=== PATIENT | female | born 1965 | race Caucasian/White ===

== ENCOUNTER 2016-09-02 08:48 | Emergency (ER) | payer OTHER ==
[2016-09-02 09:03] VITALS: BP 101/62
--- NOTE | 2016-09-02 10:49 | UC ---
Throat Pain/Nasal Kana HPI - HPI Summary HPI Summary: Patient has had a rough cough, and sore thraot, body aches and low grade fever for the past few days - History of Current Complaint Chief Complaint: UCRespiratory Stated Complaint: SORE THROAT CHILLS COUGH HEADACHE Time Seen by Provider: 09/02/16 10:17 Hx Obtained From: Patient Hx Last Menstrual Period: 08/15/16 Onset/Duration: Sudden Onset, Lasting Days Severity: Moderate Cough: Nonproductive Associated Signs & Symptoms: Positive: Dysphagia, Wheezing, Sinus Discomfort, Fever - Epiglottits Risk Factors Epiglottis Risk Factors: Negative - Allergies/Home Medications Allergies/Adverse Reactions: Allergies Allergy/AdvReac Type Severity Reaction Status Date / Time No Known Allergies Allergy Verified 09/02/16 09:02 PMH/Surg Hx/FS Hx/Imm Hx Previously Healthy: Yes Cancer History Of: Denies: Breast Cancer - Surgical History Surgical History: Yes Surgery Procedure, Year, and Place: tonsils - Family History Known Family History: Negative: Cardiac Disease, Hypertension - Social History Alcohol Use: Occasionally Substance Use Type: None Smoking Status (MU): Never Smoked Tobacco Review of Systems Constitutional: Fever, Fatigue Skin: Negative Eyes: Negative ENT: Sore Throat, Ear Ache, Nasal Discharge Respiratory: Cough Cardiovascular: Negative Gastrointestinal: Negative Genitourinary: Negative Motor: Negative Neurovascular: Negative Musculoskeletal: Arthralgia, Myalgia Neurological: Negative Psychological: Negative All Other Systems Reviewed And Are Negative: Yes Physical Exam Triage Information Reviewed: Yes Appearance: No Pain Distress, Well-Nourished, Ill-Appearing, Pain Distress Vital Signs: Initial Vital Signs Temp 99.0 F 09/02/16 08:58 Pulse 87 09/02/16 08:58 Resp 20 09/02/16 08:58 BP 101/62 09/02/16 08:58 Pulse Ox 95 09/02/16 08:58 Vital Signs Reviewed: Yes Eye Exam: Normal Eyes: Positive: Conjunctiva Clear ENT: Positive: Pharyngeal erythema, Nasal congestion, TM bulging Dental Exam: Normal Neck exam: Normal Neck: Positive: Supple, Nontender, No Lymphadenopathy Respiratory Exam: Normal Respiratory: Positive: Chest non-tender, Lungs clear, Normal breath sounds Cardiovascular Exam: Normal Cardiovascular: Positive: RRR, No Murmur, Pulses Normal Abdominal Exam: Normal Abdomen Description: Positive: Nontender, No Organomegaly, Soft Bowel Sounds: Positive: Present Musculoskeletal Exam: Normal Musculoskeletal: Positive: Strength Intact, ROM Intact, No Edema Neurological Exam: Normal Neurological: Positive: Alert, Muscle Tone Normal Psychological Exam: Normal Skin Exam: Normal Throat Pain/Nasal Course/Dx - Course Course Of Treatment: hx obtained, exam performed, rapid flu and strep obtained. - Differential Dx/Diagnosis Differential Diagnosis/HQI/PQRI: Influenza, Laryngitis, Otitis Media, Pharyngitis, Sinusitis, Tonsillitis, URI Provider Diagnoses: influenza B Discharge - Discharge Plan Condition: Stable Disposition: HOME Prescriptions: Albuterol HFA INHALER* [Ventolin HFA Inhaler*] 2 puff INH Q4H PRN #1 mdi PRN Reason: Cough guaiFENesin/CODIEN 100MG-10MG* [Robitussin AC 100Mg-10Mg*] 5 ml PO BID #100 ml MDD 10 ml predniSONE TAB* [Deltasone TAB*] 20 mg PO DAILY #5 tab Patient Education Materials: Influenza (ED) Forms: *Work Release Additional Instructions: Take the medication as prescribed. Increase fluid intake and get plenty of rest. Continue with the ytlnol and ibuprofen as needed.
== END 2016-09-02 11:10 | disposition home or self-care (01) ==
LOC: UCEAST 08:48
DX: J11.1 Influenza due to unidentified influenza virus with other respiratory manifestations (principal)
CPT/HCPCS: 87502; 87651; 99212; G0463

== ENCOUNTER 2018-11-12 13:09 | Emergency (ER) | payer BC, OTHER ==
[2018-11-12 13:25] VITALS: BP 95/55
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
[2018-11-13 14:31] LABS: Hepatitis B Surface Ab Not Immune (Immune)
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
== END 2018-11-12 14:15 | disposition home or self-care (01) ==
LOC: UCEAST 13:09
DX: S51.852A Open bite of left forearm, initial encounter (principal); Y04.1XXA Assault by human bite, initial encounter; Y92.219 Unspecified school as the place of occurrence of the external cause; Y99.0 Civilian activity done for income or pay
CPT/HCPCS: 36415; 86703; 86704; 86705; 86706; 86803; 99212; G0463

== ENCOUNTER 2018-11-17 14:44 | Emergency (ER) | payer OTHER ==
[2018-11-17 14:57] VITALS: BP 107/65
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
[2018-11-17] MEDS ORDERED: HEPATITIS B VACCINE 10 MCG/0.5 ML IM ONE (15:59)
[2018-11-17] MEDS ORDERED: Hepatitis B Immune Globulin* > 312 UNITS/ML 5 ML VIAL IM ONE (16:00)
== END 2018-11-17 16:30 | disposition home or self-care (01) ==
LOC: ED 14:44
DX: Z77.21 Contact with and (suspected) exposure to potentially hazardous body fluids (principal); W50.3XXA Accidental bite by another person, initial encounter; Y92.219 Unspecified school as the place of occurrence of the external cause; Y99.0 Civilian activity done for income or pay
CPT/HCPCS: 90371; 90471; 90647; 96372; 99282